=== PATIENT | male | born 1990 | race Caucasian/White ===

== ENCOUNTER 2018-12-29 08:29 | Emergency (ER) | payer MEDICAID ==
[~2018-12-29] VITALS: Ht 177.8 cm; Wt 65.0 kg
[2018-12-29 11:13] LABS: BASOPHILS % 0.4 % (0.0-2.0); HEMATOCRIT. 41.9 % (42.0-52.0); HEMOGLOBIN. 14.6 g/dL (14.0-18.0); MEAN CORPUSCULAR HEMOGLOBIN 31.1 pg (28.0-32.0); MEAN CORPUSCULAR VOLUME 89.6 fL (80.0-94.0); MEAN PLATELET VOLUME 7.5 fl (7.4-10.4); NEUTROPHILS % 62.6 % (40.0-76.0); PLATELET 320 x1000/uL (130-400); RED BLOOD CELL COUNT 4.68 mill/uL (4.7-6.1); RED CELL DISTRIBUTION WIDTH 13.4 % (11.6-14.6)
[2018-12-29 11:14] LABS: CHLORIDE 106 mEq/L (98-107)
[2018-12-29 11:19] LABS: ETHANOL BLOOD < 10 mg/dL
[2018-12-29 12:23] LABS: CLARITY URINE CLEAR (CLEAR); COLOR URINE YELLOW (YELLOW); KETONES URINE NEGATIVE (NEGATIVE); LEUKOCYTE ESTERASE URINE NEGATIVE (NEGATIVE); NITRITE URINE NEGATIVE (NEGATIVE); OCCULT BLOOD URINE NEGATIVE (NEGATIVE); PROTEIN URINE NEGATIVE (NEGATIVE); SPECIFIC GRAVITY URINE 1.019 (1.005-1.030)
[2018-12-29 12:35] LABS: *AMPHETAMINES SCREEN URINE PRESUMTIVE POSITIVE (NEGATIVE); *BARBITURATES SCREEN URINE NEGATIVE (NEGATIVE); *BENZODIAZEPINES SCREEN URINE NEGATIVE (NEGATIVE)
[2018-12-29 12:36] LABS: *COCAINE SCREEN URINE NEGATIVE (NEGATIVE); CANNABINOID URINE SCREEN NEGATIVE (NEGATIVE); METHADONE URINE SCREEN NEGATIVE (NEGATIVE); OPIATES URINE SCREEN NEGATIVE (NEGATIVE); PHENCYCLIDINE URINE SCREEN PRESUMTIVE POSITIVE (NEGATIVE)
[2018-12-29 13:45] VITALS: BP 120/79
== END 2018-12-29 13:48 | disposition home or self-care (01) ==
LOC: ER 08:29 → EDBD 08:29 → ER 13:48
DX: T40.691A Poisoning by other narcotics, accidental (unintentional), initial encounter (principal); R41.82 Altered mental status, unspecified; F11.10 Opioid abuse, uncomplicated; F17.200 Nicotine dependence, unspecified, uncomplicated; Y92.89 Other specified places as the place of occurrence of the external cause
CPT/HCPCS: 36415; 80305; 80320; 81003; 99284; G0480

== ENCOUNTER 2019-07-31 20:54 | Emergency (ER) | payer MEDICAID ==
[~2019-07-31] VITALS: Ht 172.7 cm; Wt 77.0 kg
[2019-07-31 23:05] VITALS: BP 152/77
[2019-07-31] MEDS ORDERED: SODIUM CHLORIDE 0.9% 1,000 ML IV ONE (23:15)
== END 2019-07-31 23:27 | disposition home or self-care (01) ==
LOC: ER 20:54
DX: T40.4X1A Poisoning by other synthetic narcotics, accidental (unintentional), initial encounter (principal); R55 Syncope and collapse; F11.129 Opioid abuse with intoxication, unspecified; F15.10 Other stimulant abuse, uncomplicated; R03.0 Elevated blood-pressure reading, without diagnosis of hypertension; Y92.89 Other specified places as the place of occurrence of the external cause
CPT/HCPCS: 82962; 99283; J7030